=== PATIENT | female | born 2000 | race Two or more races ===

== ENCOUNTER 2018-11-21 00:34 | Emergency (ER) | payer SELFPAY ==
--- NOTE | 2018-11-21 01:34 | ED ---
Psychiatric Complaint - HPI Summary HPI Summary: This patient is a 18 year old F brought in by police to [facility] with a chief complaint of suicidal ideation that began yesterday. The patient rates the pain 0/10 in severity. Symptoms aggravated by nothing. Symptoms alleviated by nothing. Patient states she got in an argument with her boyfriend. - History Of Current Complaint Chief Complaint: EDMentalHealth Time Seen by Provider: 11/21/18 01:28 Hx Obtained From: Patient ?: No Onset/Duration: Sudden Onset, Lasting Days, Still Present Timing: Constant Severity Initially: Mild Severity Currently: Mild Character: Depressed Aggravating Factor(s): Nothing Alleviating Factor(s): Nothing Has Suicidal: Reports: Thoughts. Denies: With A Plan - Allergies/Home Medications Allergies/Adverse Reactions: Allergies Allergy/AdvReac Type Severity Reaction Status Date / Time No Known Allergies Allergy Verified 11/21/18 00:46 Home Medications: Home Medications Norgestimate-Ethinyl Estradiol [Aom-Aa-Hwvtqmyn Tablet] 1 tab PO DAILY 11/21/18 [History Confirmed 11/21/18] Sulfacetamide Sodium [Ovace Plus] 100 gm TOPICAL DAILY 11/21/18 [History Confirmed 11/21/18] PMH/Surg Hx/FS Hx/Imm Hx Previously Healthy: Yes Opthamlomology History: Denies: Hx Legally Blind EENT History: Denies: Hx Deafness Infectious Disease History: No Infectious Disease History: Denies: Traveled Outside the [place] in Last 30 Days - Family History Known Family History: Positive: Cardiac Disease - Social History Occupation: Student Lives: Dormitory/Roommates Review of Systems Negative: Fever Psychological: Other - Positive suicidal ideation All Other Systems Reviewed And Are Negative: Yes Physical Exam - Summary Physical Exam Summary: VITAL SIGNS: Reviewed. GENERAL: Patient is a well-developed and nourished female who is lying comfortable in the stretcher. Patient is not in any acute respiratory distress. HEAD AND FACE: No signs of trauma. No ecchymosis, hematomas or skull depressions. No sinus tenderness. EYES: PERRLA, EOMI x 2, No injected conjunctiva, no nystagmus. EARS: Hearing grossly intact. Ear canals and tympanic membranes are within normal limits. MOUTH: Oropharynx within normal limits. NECK: Supple, trachea is midline, no adenopathy, no JVD, no carotid bruit, no c- spine tenderness, neck with full ROM. CHEST: Symmetric, no tenderness at palpation LUNGS: Clear to auscultation bilaterally. No wheezing or crackles. CVS: Regular rate and rhythm, S1 and S2 present, no murmurs or gallops appreciated. ABDOMEN: Soft, non-tender. No signs of distention. No rebound no guarding, and no masses palpated. Bowel sounds are normal. EXTREMITIES: FROM in all major joints, no edema, no cyanosis or clubbing. NEURO: Alert and oriented x 3. No acute neurological deficits. Speech is normal and follows commands. SKIN: Dry and warm PSYCH: Suicidal ideation without a plan Triage Information Reviewed: Yes Vital Signs On Initial Exam: Initial Vitals Temp Pulse Resp BP Pulse Ox 98.3 F 79 18 132/73 100 11/21/18 00:38 11/21/18 00:38 11/21/18 00:38 11/21/18 00:38 11/21/18 00:38 Vital Signs Reviewed: Yes Diagnostics - Vital Signs Vital Signs Temp Pulse Resp BP Pulse Ox 11/21/18 00:38 98.3 F 79 18 132/73 100 - Laboratory Lab Statement: Any lab studies that have been ordered have been reviewed, and results considered in the medical decision making process. Course/Dx - Course Course Of Treatment: This patient is a 18 year old F brought in by police to [facility] with a chief complaint of suicidal ideation that began yesterday. Physical Exam Findings: Suicidal thoughts with no plan. Bloodwork obtained. Patient will be signed out to Dr. Martinez upon shift change pending outpatient appointment scheduling. The patient is agreeable with this plan. - Differential Dx/Clinical Impression Provider Diagnosis: Adjustment disorder Discharge - Sign-Out/Discharge Documenting (check all that apply): Sign-Out Patient Signing out patient TO: Brian Martinez - Upon shift change pending outpatient appointment scheduling Patient Received Moderate/Deep Sedation with Procedure: No - Discharge Plan Condition: Stable Referrals: [facility] [Z.BUSINESS, APPLICATION, OTHER] - - Attestation Statements Document Initiated by Scribe: Yes Documenting Scribe: Marianna Palomino Provider For Whom Scribe is Documenting (Include Credential): Dr. Anais Ornelas MD Scribe Attestation: I, Marianna Palomino, scribed for Dr. Anais Ornelas MD on 11/21/18 at 0636. Status of Scribe Document: Ready
[2018-11-21 02:16] LABS: Urine Appearance Cloudy; Urine Bilirubin Negative (Negative); Urine Blood Negative (Negative); Urine Color Yellow; Urine Glucose Negative (Negative); Urine Ketones Trace (Negative); Urine Nitrite Negative (Negative); Urine Protein Negative (Negative); Urine Specific Gravity 1.034 (1.010-1.030); Urine Urobilinogen Negative (Negative)
[2018-11-21 02:26] LABS: Barbiturates Urine Screen None Detected (None Detect); Benzodiazepine Urine Screen None Detected (None Detect); Urine Cannabinoids Screen None Detected (None Detect)
--- NOTE | 2018-11-21 07:18 | ED ---
Progress - Progress Note Progress Note: This pt was signed out by Dr. Ornelas at shift change, pending disposition, awaiting mental health evaluation. Mental health admissions counselor, Anirudh, reports Dr. Wood (psychiatrist) cleared the pt for discharge last night but wanted the pt held in the ED until she had a follow up appointment made. Pt will be discharged today with dx of depression and with outpatient follow up appointment at [facility]. Course/Dx - Diagnoses Provider Diagnoses: Depression Discharge - Sign-Out/Discharge Documenting (check all that apply): Patient Departure - Discharge home, Receiving Sign-Out Receiving patient FROM: Anais Ornelas Patient Received Moderate/Deep Sedation with Procedure: No - Discharge Plan Condition: Stable Disposition: HOME Patient Education Materials: Depression (ED) Referrals: [facility] [Z.BUSINESS, APPLICATION, OTHER] - - Billing Disposition and Condition Condition: STABLE Disposition: Home - Attestation Statements Document Initiated by Scribe: Yes Documenting Scribe: Angela Gooden Provider For Whom Scribe is Documenting (Include Credential): Brian Martinez MD Scribe Attestation: Angela Christensen, scribed for Brian Martinez MD on 11/21/18 at 1856. Scribe Documentation Reviewed: Yes Provider Attestation: The documentation as recorded by the Angela ghotra accurately reflects the service I personally performed and the decisions made by me, Brian Martinez MD Status of Scribe Document: Viewed
[2018-11-21 09:43] VITALS: BP 114/81
== END 2018-11-21 09:42 | disposition home or self-care (01) ==
LOC: ED 00:34
DX: F43.21 Adjustment disorder with depressed mood (principal); R45.851 Suicidal ideations
CPT/HCPCS: 36415; 80307; 81003; 99284